=== PATIENT | male | born 1970 | race Caucasian/White ===

== ENCOUNTER 2016-08-31 11:59 | Inpatient (IN) | payer OTHER ==
[~2016-08-31] VITALS: Ht 190.5 cm; Wt 100.1 kg
[2016-08-31 12:49] LABS: EOSINOPHIL (%) 3.6 % (0-5); EOSINOPHIL COUNT 0.3 K/uL (0-0.3); HEMATOCRIT 42.5 % (38.0-50.0); IMMATURE GRANULOCYTE (%) 0.4 % (0.0-0.7); INSTRUMENT ABS NEUTROPHIL CT 6.8 K/uL; MCH 29.6 PG (29.0-34.0); MCHC 33.4 G/DL (30.0-36.0); MCV 88.5 FL (86-99); MEAN PLAT.VOLUME 10.6 uM^3 (9.0-12.4); MONOCYTE (%) 7.7 % (3-12); MONOCYTE COUNT 0.7 K/uL (0-0.8); NEUTROPHIL (%) 76.4 % (45-76); NEUTROPHIL COUNT 6.8 K/uL (1.8-6.4); PLATELET COUNT 194 K/uL (156-360); RBC DIS.WIDTH-CV 12.4 % (11.8-14.6); RBC DIS.WIDTH-SD 40.4 % (39-53)
[2016-08-31 12:57] LABS: CHLORIDE 108 mEq/L (99-109); POTASSIUM 3.8 mEq/L (3.7-5.4); SODIUM 142 mEq/L (136-147)
[2016-08-31 12:58] LABS: INTER. NORMALIZED RATIO 1.1; PROTHROMBIN TIME 10.7 (9.2-11.2); PTT 28.1 (25-32)
[2016-08-31 12:59] LABS: GLUCOSE 104 mg/dL (70-99)
[2016-08-31 13:00] LABS: ANION GAP 9 MEQ/L (2-14)
[2016-08-31 13:03] LABS: GFR ESTIMATE (CALCULATED) > 59 mL/min/
[2016-08-31 13:04] LABS: UREA NITROGEN (BUN) 26 mg/dL (9-23)
[2016-08-31 13:12] LABS: TROP-I INTERPRETATION POSITIVE
[2016-08-31 13:13] LABS: TROPONIN-I 2.94 ng/mL (0.0-0.30)
[2016-08-31] MEDS ORDERED: DAILY VITE WIT1 EACH PO (13:19)
[2016-08-31 15:20] LABS: HDL CHOLESTEROL 55 MG/DL (Desirable>=40); LDL CHOLESTEROL 136 mg/dL (Desirable<100); NON-HDL CHOLESTEROL 149 mg/dL (Desirable<160); TOTAL CHOLESTEROL 204 mg/dL (Desirable<200); TRIGLYCERIDES 66 MG/DL (Normal: <150)
[2016-08-31 16:03] LABS: Estimated Average Glucose 103 mg/dL (70-123); HEMOGLOBIN A1c (GLYCOHEMOGLOB) 5.2 % HGB (Below 5.7)
[2016-08-31 19:30] VITALS: BP 137/78
[2016-08-31 19:34] VITALS: BP 137/70
[2016-08-31 22:00] VITALS: BP 130/77
[2016-09-01 01:20] LABS: TROPONIN-I 5.36 ng/mL (0.0-0.30)
[2016-09-01 01:21] LABS: TROP-I INTERPRETATION POSITIVE
[2016-09-01 03:26] VITALS: BP 120/80
[2016-09-01 04:27] LABS: EOSINOPHIL (%) 6.2 % (0-5); EOSINOPHIL COUNT 0.6 K/uL (0-0.3); HEMATOCRIT 38.4 % (38.0-50.0); IMMATURE GRANULOCYTE (%) 0.4 % (0.0-0.7); INSTRUMENT ABS NEUTROPHIL CT 6.4 K/uL; LYMPHOCYTE COUNT 1.1 K/uL (1.0-2.8); MCH 29.4 PG (29.0-34.0); MCHC 32.8 G/DL (30.0-36.0); MCV 89.5 FL (86-99); MONOCYTE (%) 8.9 % (3-12); MONOCYTE COUNT 0.8 K/uL (0-0.8); NEUTROPHIL (%) 72.3 % (45-76); NEUTROPHIL COUNT 6.4 K/uL (1.8-6.4); PLATELET COUNT 164 K/uL (156-360); RBC DIS.WIDTH-CV 12.6 % (11.8-14.6); RBC DIS.WIDTH-SD 41.6 % (39-53); RED BLOOD COUNT 4.29 M/uL (4.00-5.50); WHITE BLOOD COUNT 8.9 K/uL (4.1-10.2)
[2016-09-01 04:41] LABS: CHLORIDE 109 mEq/L (99-109); POTASSIUM 4.3 mEq/L (3.7-5.4); SODIUM 143 mEq/L (136-147)
[2016-09-01 04:43] LABS: GLUCOSE 107 mg/dL (70-99)
[2016-09-01 04:44] LABS: ANION GAP 5 MEQ/L (2-14)
[2016-09-01 04:47] LABS: GFR ESTIMATE (CALCULATED) > 59 mL/min/; UREA NITROGEN (BUN) 20 mg/dL (9-23)
[2016-09-01 04:55] LABS: TROP-I INTERPRETATION POSITIVE; TROPONIN-I 4.93 ng/mL (0.0-0.30)
[2016-09-01 07:39] VITALS: BP 143/91
[2016-09-01 11:38] VITALS: BP 153/89
[2016-09-01 12:37] LABS: TROP-I INTERPRETATION POSITIVE; TROPONIN-I 3.62 ng/mL (0.0-0.30)
[2016-09-01] MEDS ORDERED: LOPRESSOR25 MG PO (13:04)
[2016-09-01] MEDS ORDERED: ASPIR-LOW81 MG PO (13:04)
[2016-09-01] MEDS ORDERED: BRILINTA90 MG PO (13:04)
[2016-09-01] MEDS ORDERED: ATORVASTATIN CA40 MG PO (13:04)
== END 2016-09-01 15:50 | disposition home or self-care (01) | DRG 247 ==
LOC: EME 11:59 → EDOF 12:52 → 4EAST 13:18 → EDOF 13:18 → 4EAST 14:03
PROVIDERS: Emergency Medicine; Internal Medicine; Internal Medicine Cardiovascular Disease
PROC: 027136Z Dilation of Coronary Artery, Two Arteries with Three Drug-eluting Intraluminal Devices, Percutaneous Approach (ICD-10-PCS; principal; 2016-08-31)
DX: I21.4 Non-ST elevation (NSTEMI) myocardial infarction (principal); E88.81 Metabolic syndrome and other insulin resistance; I10 Essential (primary) hypertension; Z79.82 Long term (current) use of aspirin; Z87.891 Personal history of nicotine dependence; Z91.19 Patient's noncompliance with other medical treatment and regimen; M54.9 Dorsalgia, unspecified; I25.10 Atherosclerotic heart disease of native coronary artery without angina pectoris
CPT/HCPCS: 71010; 80048; 80061; 83036; 84484; 85025; 85347; 85610; 85730; 93005; 93306; 99281; 99282; C1725; C1769; C1874; C1887; J1644; J2250; J3010; J3246